=== PATIENT | male | born 1960 | race Caucasian/White ===

== ENCOUNTER 2022-04-24 10:50 | Inpatient (IN) | payer OTHER ==
[~2022-04-24] VITALS: Ht 180.3 cm; Wt 111.5 kg
[2022-04-24 11:57] LABS: Albumin, Blood 3.7 g/dL (3.4-5.0); Albumin/Globulin Ratio 0.8 (0.8-1.8); Bilirubin, Total 0.9 mg/dL (0.1-1.0); Bun/Creatinine Ratio 21.8 (12.0-20.0); Calcium, Blood 8.8 mg/dL (8.5-10.1); Creatinine, Blood 0.73 mg/dL (0.60-1.20); Globulin, Blood 4.5 g/dL (2.2-4.0); Potassium, Blood 4.2 mmol/L (3.5-5.5); Total Protein, Blood 8.2 g/dL (6.4-8.2)
[2022-04-24 12:01] LABS: BASOPHILS ABSOLUTE AUTO 0.04 K/mm3 (0.00-0.23); BASOPHILS PERCENT AUTO 1 % (0-2); EOSINOPHILS ABSOLUTE AUTO 0.12 K/mm3 (0.00-0.68); EOSINOPHILS PERCENT AUTO 2 % (0-6); Hematocrit 43.4 % (37.0-53.0); Hemoglobin 15.5 g/dL (13.5-17.5); IMMATURE GRAN ABSOLUTE AUTO 0.04 K/mm3 (0.00-0.10); IMMATURE GRAN PERCENT AUTO 1 % (0-1); LYMPHOCYTES ABSOLUTE AUTO 2.16 K/mm3 (0.84-5.20); LYMPHOCYTES PERCENT AUTO 37 % (21-46); MONOCYTES ABSOLUTE AUTO 0.63 K/mm3 (0.16-1.47); MONOCYTES PERCENT AUTO 11 % (4-13); Mean Corpuscular HGB 33.5 pg (26.0-34.0); Mean Corpuscular HGB Conc 35.7 g/dL (31.5-36.5); Mean Corpuscular Volume 94 fL (80-100); Mean Platelet Volume 10.9 fL (9.1-12.4); NEUTROPHILS ABSOLUTE AUTO 2.93 K/mm3 (1.96-9.15); NEUTROPHILS PERCENT AUTO 50 % (41-73); Platelet Count 197 K/mm3 (150-400); RDW Coefficient Variation 11.8 % (11.7-14.2); RDW Standard Deviation 40.8 fL (35.1-46.3); Red Blood Cell Count 4.63 M/mm3 (4.30-5.90); White Blood Cell Count 5.92 K/mm3 (4.00-11.30)
[2022-04-24] MEDS ORDERED: IBUP200 PO (13:44)
[2022-04-24] MEDS ORDERED: Aspir 8181 MG PO (13:44)
[2022-04-24] MEDS ORDERED: Prinivil10 MG PO (13:44)
[2022-04-24 16:49] LABS: CHOL/HDL RATIO 6.1; Cholesterol 177 mg/dL (50-200); HDL Cholesterol 29 mg/dL (>39); LDL/HDL RATIO 3.8; Low Density Lipoprotein Chol 110 mg/dL (0-110); Triglycerides 188 mg/dL (30-160); Very Low Density Lipoprot Chol 37 mg/dL (6-32)
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
[2022-04-25 05:05] LABS: BASOPHILS ABSOLUTE AUTO 0.02 K/mm3 (0.00-0.23); BASOPHILS PERCENT AUTO 0 % (0-2); EOSINOPHILS ABSOLUTE AUTO 0.19 K/mm3 (0.00-0.68); EOSINOPHILS PERCENT AUTO 3 % (0-6); Hematocrit 42.9 % (37.0-53.0); Hemoglobin 15.2 g/dL (13.5-17.5); IMMATURE GRAN ABSOLUTE AUTO 0.03 K/mm3 (0.00-0.10); IMMATURE GRAN PERCENT AUTO 1 % (0-1); LYMPHOCYTES ABSOLUTE AUTO 2.54 K/mm3 (0.84-5.20); LYMPHOCYTES PERCENT AUTO 39 % (21-46); MONOCYTES ABSOLUTE AUTO 0.72 K/mm3 (0.16-1.47); MONOCYTES PERCENT AUTO 11 % (4-13); Mean Corpuscular HGB 33.5 pg (26.0-34.0); Mean Corpuscular HGB Conc 35.4 g/dL (31.5-36.5); Mean Corpuscular Volume 95 fL (80-100); Mean Platelet Volume 10.9 fL (9.1-12.4); NEUTROPHILS ABSOLUTE AUTO 3.01 K/mm3 (1.96-9.15); NEUTROPHILS PERCENT AUTO 46 % (41-73); Platelet Count 204 K/mm3 (150-400); RDW Coefficient Variation 11.9 % (11.7-14.2); RDW Standard Deviation 41.5 fL (35.1-46.3); Red Blood Cell Count 4.54 M/mm3 (4.30-5.90); White Blood Cell Count 6.51 K/mm3 (4.00-11.30)
[2022-04-25 05:31] LABS: Albumin, Blood 3.5 g/dL (3.4-5.0); Albumin/Globulin Ratio 0.8 (0.8-1.8); Bilirubin, Total 0.9 mg/dL (0.1-1.0); Bun/Creatinine Ratio 17.4 (12.0-20.0); Creatinine, Blood 0.81 mg/dL (0.60-1.20); Globulin, Blood 4.2 g/dL (2.2-4.0); Potassium, Blood 4.2 mmol/L (3.5-5.5); Total Protein, Blood 7.7 g/dL (6.4-8.2)
--- NOTE | 2022-04-25 17:52 | NUR ---
SHIFT SUMMARY PT A&OX 4 AND IN PLEASENT MOOD T/O SHIFT. PLAN FOR ANIGIO TOMORROW, NPO @ MIDNIGHT. PERFUSION SCAN/ 2 PART STRESS TEST THIS SHIFT. TELE IN PLACE. VSAbby. RAEGANIES CP. STARTED PLAVIX THIS SHIFT. TOLERATING PO INTAKE WELL @ THIS TIME. SPOUSE IN TO SEE PT T/O VISITING HOURS.
--- NOTE | 2022-04-26 04:59 | NUR ---
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 A/OX4. PT HAD SOME WAKEFULLNESS T/O THE NIGHT. STATES HE IS NERVOUS ABOUT ANGIOGRAM PROCEDURE 04/26/22. ON TELE--SINUS W/BBB; 88 BPM. PT NPO SINCE MIDNIGHT. ABLE TO MAKE NEEDS KNOWN; CALLS APPROPRIATELY. CALL LIGHT IN REACH.
--- NOTE | 2022-04-26 12:43 | NUR ---
TRANSFER NOTE- PT WENT TO PHYSICIAN RELATIONS SPECIALIST. VERBAL TELEPHONE REPORT COMPLETED WITH OPERATOR ASSISTANT I CEMENTING NEGAR. NO S&S OF DISTRESS NOTED AT THE TIME OF LEAVING TO THE PHYSICIAN RELATIONS SPECIALIST. PT CALLED HIS SPOUSE PRIOR TO LEAVING AND WOULD LIKE HER CALLED AFTER HE GETS OUT. OPERATOR ASSISTANT I CEMENTING AWARE.
--- NOTE | 2022-04-26 18:45 | NUR ---
SHIFT SUMMARY PATIENT TRANSFER TO UNIT POST ANGIOGRAM WITH STENT PLACEMENT. CAME FROM MEDICAL FLOOR. ALERT AND ORIENTED. TR BAND DEFLATED AND REMOVED PER ORDER PROTOCOL. R RADIAL SITE WNL. NO PAIN, REDNESS, FIRMNESS, OR SWELLING. TOLERATED A FEW BITES OF CARDIAC DINNER AND FLUIDS. VOIDING IN URINAL. DENIES SOB OR CHEST PAIN. VSS. SPOUSE PRESENT IN ROOM DURING AFTERNOON.
[2022-04-27 04:59] LABS: Albumin, Blood 3.6 g/dL (3.4-5.0); Albumin/Globulin Ratio 0.8 (0.8-1.8); Bilirubin, Total 0.7 mg/dL (0.1-1.0); Bun/Creatinine Ratio 20.3 (12.0-20.0); Calcium, Blood 9.3 mg/dL (8.5-10.1); Creatinine, Blood 0.84 mg/dL (0.60-1.20); Globulin, Blood 4.3 g/dL (2.2-4.0); Potassium, Blood 4.1 mmol/L (3.5-5.5); Total Protein, Blood 7.9 g/dL (6.4-8.2)
--- NOTE | 2022-04-27 05:39 | NUR ---
Patient slept most of the night. SR on tele, VSS. Denies any CP/pressure. R radial site c/d/i without hematoma. No acute changes, will report to dayshift RN.
[2022-04-27] MEDS ORDERED: ATOR40TA PO (15:35)
[2022-04-27] MEDS ORDERED: METO25 PO (15:36)
[2022-04-27] MEDS ORDERED: CLOP75 PO (15:36)
[2022-04-27] MEDS ORDERED: NITR.4SL SL (15:37)
--- NOTE | 2022-04-27 16:25 | NUR ---
DISCHARGE HOME PT A&O X4. VSS. SPO2 > 92% ON RA. PT DENYING CP/DISCOMFORT. R RADIAL SITE WNL, TRANSPARENT DRESSING & ARM BOARD IN PLACE. DISCHARGE INSTRUCTIONS REVIEWED W/ PT & SENT HOME W/ PT. PT TAKEN OUT BY WHEELCHAIR @ APPROX 1615.
== END 2022-04-27 16:22 | disposition home or self-care (01) | DRG 247 ==
LOC: ER 10:50 → ERHOLD 10:51 → PCU 10:51 → MEDS 10:51 → PCU 04-26 12:43
PROVIDERS: Student in an Organized Health Care Education/Training Program; ADMIT Family Medicine
PROC: 027035Z Dilation of Coronary Artery, One Artery with Two Drug-eluting Intraluminal Devices, Percutaneous Approach (ICD-10-PCS; principal; 2022-04-26)
PROC: B211YZZ Fluoroscopy of Multiple Coronary Arteries using Other Contrast (ICD-10-PCS; 2022-04-26)
PROC: B240ZZ3 Ultrasonography of Single Coronary Artery, Intravascular (ICD-10-PCS; 2022-04-26)
DX: I25.110 Atherosclerotic heart disease of native coronary artery with unstable angina pectoris (principal); I10 Essential (primary) hypertension; K21.9 Gastro-esophageal reflux disease without esophagitis; R74.8 Abnormal levels of other serum enzymes; R93.89 Abnormal findings on diagnostic imaging of other specified body structures; F10.10 Alcohol abuse, uncomplicated; E74.39 Other disorders of intestinal carbohydrate absorption; E78.5 Hyperlipidemia, unspecified; E78.1 Pure hyperglyceridemia; Z79.82 Long term (current) use of aspirin; Z79.899 Other long term (current) drug therapy; Z79.811 Long term (current) use of aromatase inhibitors; Z71.41 Alcohol abuse counseling and surveillance of alcoholic
CPT/HCPCS: 36415; 71045; 76937; 78452; 80053; 80061; 83036; 83690; 84484; 85025; 85347; 92978; 93005; 93010; 93017; 93454; 96372; 99152; 99153; 99285-25; A9270; A9500; C1725; C1753; C1769; C1874; C1887; C1894; C9600; G0378; J0171; J0280; J0461; J1644; J1650; J2250; J2370; J2785; J3010; J3246; J7030; J7050; Q9967